=== PATIENT | male | born 1990 | race African-American/Black ===

== ENCOUNTER 2018-05-30 18:04 | Emergency (ER) | payer SELFPAY ==
[~2018-05-30] VITALS: Ht 175.3 cm; Wt 88.5 kg
[~2018-05-30 18:04] MED LIST: NAPROSYN500 MG PO; NO HOME MEDS
[2018-05-30 18:29] LABS: INFLUENZA A POSITIVE (NONE DETECT); INFLUENZA B NONE DETECTED (NONE DETECT)
[2018-05-30] MEDS ORDERED: TAM75CAP PO (18:31)
[2018-05-30 18:35] VITALS: BP 125/77
== END 2018-05-30 18:35 | disposition home or self-care (01) | DRG 153 ==
LOC: ED 18:04
PROVIDERS: Emergency Medicine
DX: J11.1 Influenza due to unidentified influenza virus with other respiratory manifestations (principal); F17.210 Nicotine dependence, cigarettes, uncomplicated